=== PATIENT | female | born 1990 | race Caucasian/White ===

== ENCOUNTER → 2020-08-13 | Outpatient (CLI) | payer BC | END | disposition home or self-care (01) | LOC: STAR 10:50 | PROVIDERS: ATTEND Anesthesiology | DX: Z01.812 Encounter for preprocedural laboratory examination (principal); Z20.828 Contact with and (suspected) exposure to other viral communicable diseases | CPT/HCPCS: 36415; 87635 ==

== ENCOUNTER 2020-08-18 05:08 | Inpatient (IN) | payer BC ==
[~2020-08-18] VITALS: Ht 165.1 cm; Wt 70.5 kg
[2020-08-18] MEDS ORDERED: LACTATED RINGERS 1,000 ML IVBOLUS ONE (05:30)
[2020-08-18] MEDS ORDERED: SODIUM CITRATE/CITRIC ACID 30 ML UDC PO ONE (05:30)
[2020-08-18] MEDS ORDERED: METOCLOPRAMIDE 5 MG/ML, 2ML IV ONE (05:30)
[2020-08-18] MEDS ORDERED: ONDANSETRON 2MG/ML, 2ML IVPush ONE (05:30)
[2020-08-18] MEDS ORDERED: PLEASE ENTER ALLERGIES MC SCH (06:00)
[2020-08-18] MEDS ORDERED: OXYTOCIN 30U/ 0.9% NaCL 500ML 500 ML ONE (06:13)
[2020-08-18] MEDS ORDERED: METOCLOPRAMIDE 5 MG/ML, 2ML ONE (06:13)
[2020-08-18] MEDS ORDERED: NEWBORN KIT ONE (06:13)
[2020-08-18 06:40] LABS: BASOPHILS % (AUTO) 0 % (0-1); EOSINOPHILS % (AUTO) 1 % (1-7); LYMPHOCYTES % (AUTO) 38 % (22-44); MEAN CORPUSCULAR HGB CONC 33.6 g/dL (32.4-35.8); MEAN PLATELET VOLUME 8.8 fL (7.4-10.4); MONOCYTES % (AUTO) 8 % (2-9); NEUTROPHILS % (AUTO) 53 % (42-75); PLATELET COUNT 192 x10^3/uL (130-400); RED BLOOD COUNT 4.02 x10^6/uL (3.82-5.3); RED CELL DISTRIBUTION WIDTH 13.1 % (9.6-15.2)
[2020-08-18 06:45] LABS: MD NO
[2020-08-18] MEDS ORDERED: morphine SULFATE/PF 0.5 MG/ML, 10ML ONE (07:21)
[2020-08-18] MEDS ORDERED: WATER-INJECTION,STERILE 10 ML IV ONE (07:24)
[2020-08-18] MEDS ORDERED: KETOROLAC 30 MG/1 ML ONE (07:24)
[2020-08-18] MEDS ORDERED: CEFAZOLIN 1,000 MG ONE (07:24)
[2020-08-18] MEDS ORDERED: ONDANSETRON 2MG/ML, 2ML ONE (07:24)
[2020-08-18] MEDS ORDERED: DEXAMETHASONE 4 MG/ML, 1ML ONE (07:24)
[2020-08-18] MEDS ORDERED: OXYTOCIN 10 UNITS/ML, 1ML ONE (07:24)
[2020-08-18] MEDS ORDERED: METHYLERGONOVINE 0.2 MG/ML IM ONE ×2 (07:33→15:04)
[2020-08-18] MEDS ORDERED: LIDOCAINE 1%, 20ML ONE (07:33)
[2020-08-18] MEDS: LACTATED RINGERS 1,000 ML IV SCH ×6 (09:00→19:30)
[2020-08-18] MEDS ORDERED: METHYLERGONOVINE 0.2 MG/ML IM PRN (09:00)
[2020-08-18] MEDS: PRENATAL VIT/IRON/FA 1 EACH TABLET PO SCH (09:00)
[2020-08-18] MEDS ORDERED: SIMETHICONE 80 MG CHEW TAB PO PRN ×2 (09:00→09:30)
[2020-08-18] MEDS ORDERED: MEPERIDINE/PF 100 MG/ML IVPush PRN (09:00)
[2020-08-18] MEDS ORDERED: ACETAMINOPHEN 325 MG TABLET PO PRN (09:00)
[2020-08-18] MEDS ORDERED: METOCLOPRAMIDE 5 MG/ML, 2ML IV PRN (09:00)
[2020-08-18] MEDS: OXYTOCIN 30U/ 0.9% NaCL 500ML 500 ML IV SCH ×4 (09:00→19:30)
[2020-08-18] MEDS ORDERED: ONDANSETRON 2MG/ML, 2ML IV PRN ×2 (09:00→09:30)
[2020-08-18] MEDS ORDERED: BISACODYL 10 MG SUPP PR PRN (09:00)
[2020-08-18] MEDS ORDERED: MISOPROSTOL 200 MCG TABLET PO PRN (09:00)
[2020-08-18] MEDS ORDERED: MEPERIDINE/PF 50 MG/ML IVPush PRN (09:00)
[2020-08-18] MEDS ORDERED: OXYcodone/APAP 5/325MG TABLET PO PRN (09:00)
[2020-08-18] MEDS ORDERED: OXYcodone IR 5MG TABLET PO PRN ×2 (09:30)
[2020-08-18] MEDS: IBUPROFEN 600 MG TABLET PO SCH ×3 (09:30→21:30)
[2020-08-18] MEDS ORDERED: MISOPROSTOL 200 MCG TABLET PR PRN (09:30)
[2020-08-18] MEDS ORDERED: DOCUSATE 100 MG CAPSULE PO PRN (09:30)
[2020-08-18] MEDS: KETOROLAC 30 MG/1 ML IV SCH ×5 (09:30→21:30)
[2020-08-18 10:30] VITALS: BP 96/58
[2020-08-18 15:30] VITALS: BP 100/63
[2020-08-18] MEDS: ACETAMINOPHEN 325 MG TABLET PO SCH ×2 (16:09→22:01)
[2020-08-18 17:01] LABS: BASOPHILS % (AUTO) 0 % (0-1); EOSINOPHILS % (AUTO) 0 % (1-7); LYMPHOCYTES % (AUTO) 12 % (22-44); MEAN CORPUSCULAR HEMOGLOBIN 30.9 pg (27.0-34.8); MEAN CORPUSCULAR HGB CONC 33.6 g/dL (32.4-35.8); MEAN PLATELET VOLUME 8.8 fL (7.4-10.4); MONOCYTES % (AUTO) 4 % (2-9); NEUTROPHILS % (AUTO) 84 % (42-75); PLATELET COUNT 185 x10^3/uL (130-400); RED BLOOD COUNT 3.76 x10^6/uL (3.82-5.3)
[2020-08-18 17:20] LABS: MD SCAN
[2020-08-18] MEDS: DOCUSATE 100 MG CAPSULE PO PRN (20:18)
[2020-08-18 20:30] VITALS: BP 103/63
[2020-08-19 00:30] VITALS: BP 94/60
[2020-08-19] MEDS: LACTATED RINGERS 1,000 ML IV SCH (01:30)
[2020-08-19] MEDS: KETOROLAC 30 MG/1 ML IV SCH ×5 (02:32→19:46)
[2020-08-19] MEDS: IBUPROFEN 600 MG TABLET PO SCH (03:30)
[2020-08-19 04:00] VITALS: BP 102/61
[2020-08-19] MEDS: ACETAMINOPHEN 325 MG TABLET PO SCH (04:09)
[2020-08-19 06:55] VITALS: BP 111/73
[2020-08-19] MEDS: PRENATAL VIT/IRON/FA 1 EACH TABLET PO SCH (08:24)
[2020-08-19] MEDS ORDERED: PRENATAL VIT/IRON/FA 1 EACH TABLET PO SCH (09:00)
[2020-08-19] MEDS: OXYcodone/APAP 5/325MG TABLET PO PRN ×3 (10:55→18:07)
[2020-08-19 19:35] VITALS: BP 93/61
[2020-08-19] MEDS: DOCUSATE 100 MG CAPSULE PO PRN (19:46)
[2020-08-20] MEDS: OXYcodone/APAP 5/325MG TABLET PO PRN ×6 (00:32→14:23)
[2020-08-20] MEDS: KETOROLAC 30 MG/1 ML IV SCH ×2 (02:16→08:08)
[2020-08-20] MEDS: PRENATAL VIT/IRON/FA 1 EACH TABLET PO SCH (08:08)
[2020-08-20] MEDS: DOCUSATE 100 MG CAPSULE PO PRN (08:08)
[2020-08-20 08:46] VITALS: BP 104/66
[2020-08-20] MEDS ORDERED: DOCU-131 PO (11:59)
[2020-08-20] MEDS ORDERED: ACET650S21 PO (11:59)
[2020-08-20] MEDS ORDERED: IBUP-1222 PO (11:59)
[2020-08-20] MEDS ORDERED: OXYC5TAB3 PO (12:00)
[2020-08-20] MEDS ORDERED: KETOROLAC 30 MG/1 ML ONE (14:04)
== END 2020-08-20 14:35 | disposition home or self-care (01) | DRG 788 ==
LOC: LDIP 05:08 → 2NW 09:55
PROVIDERS: ADMIT Student in an Organized Health Care Education/Training Program; ATTEND Student in an Organized Health Care Education/Training Program
PROC: 10D00Z1 Extraction of Products of Conception, Low, Open Approach (ICD-10-PCS; principal; 2020-08-18)
DX: O69.81X0 Labor and delivery complicated by cord around neck, without compression, not applicable or unspecified (principal); Z37.0 Single live birth; Z3A.39 39 weeks gestation of pregnancy; Z88.2 Allergy status to sulfonamides; O62.2 Other uterine inertia
CPT/HCPCS: 36415; J3490; 85025; 86592; 86850; 86900; G0378; J0690; J1100; J1885; J2175; J2274; J2405; J2210; J2590; J2765; J7120